=== PATIENT | female | born 1955 | race Caucasian/White ===

== ENCOUNTER 2020-12-09 15:46 | Emergency (ER) | payer OTHER, BC ==
--- OUTSIDE RECORDS SUMMARY | 2020-12-09 15:49 | XMS REPORT | Continuity of Care Document ---
:1955 Author Organization [facility] t Address [address] [place] [address] Care Team Providers Name Role Phone Yudy OLIVARES, L Attending Clinician Problems This patient has no known problems. Allergies, Adverse Reactions, Alerts This patient has no known allergies or adverse reactions. Medications Ordered Filled Start Stop Current Ordering Indication Dosage Frequency Signature Comments Components Source Medication Medication Date Date Medication? Clinician (SIG) Name Name Sertraline Sertraline Yes Roseanne [address] [facility] HCl HCl 3-03 [place] [facility] Vitamin D3 Vitamin D3 Yes Roseanne [address] [facility] [place] [facility] Vitamin E Vitamin E Yes Roseanne [address] [facility] [place] [facility] Avalide Avalide Yes Roseanne [address] [facility] [place] [facility] Slow-Mag Slow-Mag Yes Roseanne [address] [facility] [place] [facility] Trintellix Trintellix Yes Roseanne [address] [facility] [place] ONCE A DAY [facility] Vitamin Vitamin Yes Roseanne as [facility] B-12 B-12 [place] [facility] Procedures This patient has no known procedures. Encounters Start End Encounter Admission Attending Care Care Encounter Source Date/Time Date/Time Type Type Clinicians Facility Department ID 2020-11-24 2020-11-24 [facility] [id number] 2020-10-12 2020-10-12 [facility] [id number] [facility] 2020-10-07 2020-10-07 [facility] [id number] [facility] 2020-10-07 2020-10-07 [facility] [id number] [facility] 2020-07-25 2020-07-25 [facility] [id number] [facility] 2020-07-22 2020-07-22 [facility] [id number] [facility] 2020-02-19 2020-02-19 [facility] [id number] [facility] 17:47[facility]00 17:47:00 [facility] 2020-02-04 2020-02-04 [facility] [id number] [facility] 16:24:00 16:24:00 [facility] Out[facility] Clinics 2019-12-25 2019-12-25 [facility] [id number] [facility] 10:40:00 10:40:00 [facility] Medicine Outpat[facility] Clinics 2019-11-24 2019-11-24 [facility] [id number] [facility] 14:40:00 14:40:00 [facility] Medicine Outpat[facility] Clinics 2019-08-27 2019-08-27 [facility] [id number] [facility] 11:08:00 11:08:00 [facility] Medicine Outpati ent Clinics 2019-06-30 2019-06-30 [facility] [id number] [facility] 16:02:00 16:02:00 t [facility] Medicine Outpati ent Clinics 2019-04-10 2019-04-10 Office Yudy [facility] [id number] 09:43:14 10:05:22 Visit [facility] [id number] Surgical [id number] [facility] [id number] [address] [place] 2019-03-05 2019-03-05 [facility] [id number] [facility] 15:51:00 15:51:00 [facility] Medicine Outpati [facility] Clinics 2018-10-03 2018-10-03 [facility] [id number] [facility] 09:00:00 09:00:00 t [facility] Medicine Outpati ent Clinics 2018-07-02 2018-07-02 [facility] [id number] [facility] 13:30:00 13:30:00 t [facility] Medicine Outpati ent Clinics 2018-07-01 2018-07-01 [facility] [id number] [facility] 10:07:00 10:07:00 t [facility] Medicine Outpati ent Clinics 2018-06-24 2018-06-24 [facility] [id number] [address] 08:51:00 08:51:00 t [facility] Medicine Outpati ent Clinics 2018-06-16 2018-06-16 [facility] [id number] 11:30:00 11:30:00 t [facility] Medicine Outpati ent Clinics Results This patient has no known results.
--- NOTE | 2020-12-09 17:50 | RAD REPORT ---
EXAM DESCRIPTION: RAD - Ankle Left 3 View - 12/09/2020 5:28 pm CLINICAL HISTORY: PAIN COMPARISON: No comparisons FINDINGS: Tiny avulsion fracture is seen distal most aspect of the fibula surrounding soft tissue sw elling. Small to moderate plantar calcaneal spur.
--- NOTE | 2020-12-09 18:21 | ER ---
Nurse's Notes [facility] Name: Ginger Howe Age: 65 yrs Sex: Female : 1955 Arrival Date: 12/09/2020 Time: 15:48 Bed 20 Private MD: Diagnosis: Avulsion fracture distal fibula - left Presentation: 12/09 15:54 Chief complaint: Patient states: Was getting out my car at 1300 today, L foot turned ca1 over and I heard it pop. Reports pain on L ankle. Coronavirus screen: Client denies travel out of the [place] in the last 14 days. At this time, the client does not indicate any symptoms associated with coronavirus-19. Ebola Screen: Patient negative for fever greater than or equal to 101.5 degrees Fahrenheit, and additional compatible Ebola Virus Disease symptoms Patient denies exposure to infectious person. Patient denies travel to an Ebola-affected area in the 21 days before illness onset. No symptoms or risks identified at this time. Initial Sepsis Screen: Does the patient meet any 2 criteria? No. Patient's initial sepsis screen is negative. Does the patient have a suspected source of infection? No. Patient's initial sepsis screen is negative. Risk Assessment: Do you want to hurt yourself or someone else? Patient reports no desire to harm self or others. Onset of symptoms was December 09, 2020. 15:54 Method Of Arrival: Ambulatory ca1 15:54 Acuity: ERIN 4 ca1 Historical: - Allergies: 15:57 No Known Allergies; ca1 - Home Meds: 15:57 None [Active]; ca1 - PMHx: 15:57 None; ca1 - PSHx: 15:57 Gastric Bypass; Appendectomy; Hysterectomy; ; ca1 - Immunization history:: Flu vaccine is not up to date. - Social history:: Smoking status: Patient denies any tobacco usage or history of. Vital Signs: 15:54 BP 127 / 56; Pulse 70; Resp 16 S; Temp 97.1(TE); Pulse Ox 100% on R/A; Weight 117.03 kg ca1 (R); Height 5 ft. 5 in. (165.10 cm) (R); Pain 8/10; 15:54 Body Mass Index 42.93 (117.03 kg, 165.10 cm) ca1 ED Course: 15:48 Patient arrived in ED. as 15:56 Triage completed. ca1 15:57 Arm band placed on right wrist. ca1 16:10 [facility]C [facility]. kb 16:10 Patrick Do MD is Attending Physician. kb 17:32 Ankle Left 3 View XRAY In Process Unspecified. EDMS 18:10 Rafa Payan RN is Primary Nurse. jd3 18:51 Orthoglass splint: Posterior short lleg splint applied on left leg. dh4 Administered Medications: 19:09 Drug: Ibuprofen 800 mg Route: PO; iw Outcome: 18:21 Discharge ordered by . kb 19:12 Patient left the ED. mg2 Signatures: Dispatcher [employer] EDMS Margareth Holman FNP-C FNP-Lubna Farah Irene, RN RN iw Rafa Payan RN RN jd3 Damian Gorman RN RN mg2 Ida Irwin RN RN ca1 Grey Luevano 4 Corrections: (The following items were deleted from the chart) 15:57 15:54 Chief complaint: Patient states: Was getting out my car at 1300 today, L foot ca1 turned over and I heard it pop. ca1
--- NOTE | 2020-12-09 18:21 | EDPHYS ---
Physician Documentation [facility] Name: Ginger Howe Age: 65 yrs Sex: Female : 1955 Arrival Date: 12/09/2020 Time: 15:48 Bed 20 Private MD: ED Physician Patrick Do HPI: 12/09 20:17 This 65 yrs old Female presents to ER via Ambulatory with complaints of Ankle kb Injury. 20:17 The patient presents with pain. The complaints affect the left ankle. Onset: The kb symptoms/episode began/occurred yesterday. Context: The problem was sustained at home, resulted from twisted ankle while getting out of car, The patient can partially bear weight on the affected extremity. must have assistance. Associated signs and symptoms: Pertinent positives: swelling, Pertinent negatives: calf tenderness, fever, nausea, numbness, rash, tingling, vomiting, warmth, weakness. Modifying factors: The symptoms are alleviated by nothing, the symptoms are aggravated by weight bearing. Severity of symptoms: At their worst the symptoms were moderate, in the emergency department the symptoms are unchanged. The patient has not experienced similar symptoms in the past. The patient has not recently seen a physician. Historical: - Allergies: 15:57 No Known Allergies; ca1 - Home Meds: 15:57 None [Active]; ca1 - PMHx: 15:57 None; ca1 - PSHx: 15:57 Gastric Bypass; Appendectomy; Hysterectomy; ; ca1 - Immunization history:: Flu vaccine is not up to date. - Social history:: Smoking status: Patient denies any tobacco usage or history of. ROS: 20:16 Constitutional: Negative for fever, chills, and weight loss, Skin: Negative for injury, kb rash, and discoloration, Neuro: Negative for headache, weakness, numbness, tingling, and seizure. 20:16 MS/extremity: Positive for injury or acute deformity, pain, swelling, tenderness, of the left lateral ankle. Exam: 20:16 Constitutional: This is a well developed, well nourished patient who is awake, alert, kb and in no acute distress. Head/Face: Normocephalic, atraumatic. Skin: Warm, dry with normal turgor. Normal color. Neuro: Awake and alert, GCS 15, oriented to person, place, time, and situation. Moves all extremities. Normal gait. 20:16 Musculoskeletal/extremity: Extremities: grossly normal except: noted in the left lateral ankle: pain, swelling, tenderness, ROM: intact in all extremities, Circulation is intact in all extremities. Sensation intact. Weight bearing: can bear weight with assistance only. Vital Signs: 15:54 BP 127 / 56; Pulse 70; Resp 16 S; Temp 97.1(TE); Pulse Ox 100% on R/A; Weight 117.03 kg ca1 (R); Height 5 ft. 5 in. (165.10 cm) (R); Pain 8/10; 15:54 Body Mass Index 42.93 (117.03 kg, 165.10 cm) ca1 Procedures: 20:15 Splinting: Splint applied to left leg using Orthoglass splint, applied by tech. kb Examined by me, post splint application: neurovascular intact, Patient tolerated well. MDM: 17:31 Patient medically screened. kb 20:15 Data reviewed: vital signs, nurses notes. Data interpreted: Pulse oximetry: on room air kb is 100 %. Interpretation: normal. Counseling: I had a detailed discussion with the patient and/or guardian regarding: the historical points, exam findings, and any diagnostic results supporting the discharge/admit diagnosis, radiology results, the need for outpatient follow up, a orthopedic surgeon, to return to the emergency department if symptoms worsen or persist or if there are any questions or concerns that arise at home. 12/09 16:10 Order name: Ankle Left 3 View XRAY; Complete Time: 17:58 kb 12/09 18:09 Order name: Short Leg Splint; Complete Time: 18:52 kb 12/09 18:09 Order name: Crutches; Complete Time: 18:52 kb Administered Medications: 19:09 Drug: Ibuprofen 800 mg Route: PO; iw Disposition: 12/09/20 18:21 Discharged to Home. Impression: Avulsion fracture distal fibula - left. - Condition is Stable. - Discharge Instructions: Ankle Fracture, [id number]. - Medication Reconciliation Form, Thank You Letter, Antibiotic Education, Prescription Opioid Use form. - Follow up: Emergency Department; When: As needed; Reason: Worsening of condition. Follow up: Private Physician; When: 2 - 3 days; Reason: Recheck today's complaints, Continuance of care, Re-evaluation by your physician. Addendum: 12/11/2020 01:13 Co-signature as Attending Physician, Patrick Do MD I agree with the assessment and k dr plan of care. Signatures: Dispatcher [employer] EDMS Margareth Holman, WIRE WRAPPING MACHINE OPERATOR-C WIRE WRAPPING MACHINE OPERATOR-Ckb Patrick Do MD MD kdr Triny Berg RN RN iw Damian Gorman RN RN mg2 Acob, MARISELA Prieto RN ca1 Corrections: (The following items were deleted from the chart) 12/09 19:12 18:21 12/09/2020 18:21 Discharged to Home. Impression: Avulsion fracture distal fibula mg2 - left. Condition is Stable. Forms are Medication Reconciliation Form, Thank You Letter, Antibiotic Education, Prescription Opioid Use. Follow up: Emergency Department; When: As needed; Reason: Worsening of condition. Follow up: Private Physician; When: 2 - 3 days; Reason: Recheck today's complaints, Continuance of care, Re-evaluation by your physician. kb
[2020-12-09 19:18] VITALS: BP 127/56; TEMP 97.1; O2SAT 100
[2020-12-09] MEDS ORDERED: IBUPROFEN 400 MG TAB ONE (19:22)
== END 2020-12-09 19:12 | disposition home or self-care (01) ==
LOC: ER 15:46
PROC: 2W3RX1Z Immobilization of Left Lower Leg using Splint (ICD-10-PCS; principal; 2020-12-09)
DX: S82.832A Other fracture of upper and lower end of left fibula, initial encounter for closed fracture (principal); X50.1XXA Overexertion from prolonged static or awkward postures, initial encounter; Y93.89 Activity, other specified; Y92.009 Unspecified place in unspecified non-institutional (private) residence as the place of occurrence of the external cause
CPT/HCPCS: 99283

== ENCOUNTER 2023-08-07 07:17 | Day surgery (SDC) | payer OTHER, BC ==
[2023-08-07 07:59] LABS: Absolute Lymphocytes (CBC) 1.5 K/uL (0.7-4.9); Hematocrit 48.2 % (36.0-45.0); Lymphocytes % 25.6 % (15.3-44.8); MCV 90.3 fL (80-100); MPV 7.6 fL (7.6-11.3); Platelets 187 thou/uL (152-406); RBC Red Blood Cell Count 5.34 M/uL (3.86-4.86)
[2023-08-07 08:44] LABS: Potassium 3.7 mEq/L (3.5-5.1)
--- NOTE | 2023-08-07 08:50 | RAD REPORT ---
EXAM DESCRIPTION: Lalo Single View08/07/2023 8:09 am CLINICAL HISTORY: PREOP. Hypertension COMPARISON: Chest Pa And Lat (2 Views) dated 11/13/2017 TECHNIQUE: Portable AP view of the chest. FINDINGS: The lungs show no focal consolidation. Mild diffuse interstitial prominence, could be gardener nick or related to mild congestion. No pneumothorax or effusion. The cardiomediastinal contours are u nremarkable. IMPRESSION: Mild diffuse interstitial prominence as above. No other acute cardiopulmonary process.
[2023-08-07] MEDS: BUPIVACAINE 0.5% PF 10 ML VIAL ONE ×2 (08:58→09:38)
[2023-08-07] MEDS: CEFAZOLIN SODIUM 2 GM/VIAL ONE ×2 (08:58→09:30)
[2023-08-07] MEDS ORDERED: MIDAZOLAM HCL 2 MG/2 ML INJ ONE (09:22)
[2023-08-07] MEDS ORDERED: FENTANYL CITR 100 MCG/2 ML ONE (09:23)
[2023-08-07] MEDS ORDERED: propofoL 200 MG/20 ML VIAL IV ONE (09:23)
[2023-08-07] MEDS ORDERED: ONDANSETRON 4 MG/2 ML VIAL ONE (09:24)
[2023-08-07] MEDS ORDERED: EPHEDRINE SULF 50 MG/ML VIAL ONE (10:08)
--- NOTE | 2023-08-07 10:28 | P.OP ---
Date of Service: 08/07/23 Preop diagnosis: Right anterior chest wall mass Postop diagnosis: Same Procedure performed: Excision right anterior chest wall mass 6 x 8 cm with layered closure Surgeon: Alcon Edwards MD Library Clerical Assistant: None Estimated blood loss: Minimal Specimen: Right chest wall mass Findings: Large lipoma Anesthesia: General Complications: None Drains: None Fluids and blood products: Nonapplicable Disposition: Recovery room Operative note: Patient brought to the OR and placed in the supine position. General anesthesia begun. Patient prepped and draped in the usual sterile fashion. Marcaine 0.5% infiltrated locally. 15 blade used to make a 6 cm incision on the right anterior chest. Subcutaneous tissue divided and bleeding controlled cautery. Deep to the subcutaneous tissue, a large lipoma identified and enucleated. The mass was approximately 6 x 8 cm in diameter. Wound irrigated and bleeding controlled cautery. Mass sent to pathology as specimen. 3-0 chromic used to approximate subcutaneous tissue. 3-0 chromic also used to close skin. Sterile dressing applied. Patient awakened and taken to recovery room in good general condition. CC: Yvonne Lerma's office
[2023-08-07] MEDS ORDERED: HYDROCODONE/APAP 7.5/325 MG TAB PO PRN (10:31)
[2023-08-07 13:09] VITALS: BP 138/55; TEMP 97; O2SAT 96
== END 2023-08-07 11:20 | disposition home or self-care (01) ==
LOC: OR 07:17
PROVIDERS: ATTEND Surgery
PROC: 0WB80ZZ Excision of Chest Wall, Open Approach (ICD-10-PCS; principal; 2023-08-07 09:00)
DX: D17.1 Benign lipomatous neoplasm of skin and subcutaneous tissue of trunk (principal); I10 Essential (primary) hypertension; E66.9 Obesity, unspecified; I51.7 Cardiomegaly; I47.19 Other supraventricular tachycardia; G47.33 Obstructive sleep apnea (adult) (pediatric)
CPT/HCPCS: 11406; 85025; 80048; 36415; 88304; 71045; J2704; J2250; J3010; J2405; 88305